=== PATIENT | female | born 1960 | race Caucasian/White ===

== ENCOUNTER 2017-07-02 16:10 | Inpatient (IN) | payer MEDICARE, MEDICAID ==
[~2017-07-02] VITALS: Ht 162.6 cm; Wt 68.0 kg
[~2017-07-02 16:10] MED LIST: ASCO125T PO; CHLO500T3 PO; CHOL100046 PO; LEVO500T2 PO; MILK200C4 PO; MORP30TA PO; MORP60TA32 PO; NICO-631 TD
[2017-07-02] MEDS ORDERED: morphine 2 MG/ML inj. syringe IV ONE ×2 (17:05→20:20)
[2017-07-02 17:16] LABS: BASOPHILS % (AUTO) 0.1 % (0-1); EOSINOPHILS % (AUTO) 0 % (0-6); HEMATOCRIT 37.4 % (35.0-45.0); LYMPHOCYTES # (AUTO) 1.5 X10'3 (1.1-4.8); LYMPHOCYTES % (AUTO) 11.5 % (21-51); MEAN CORPUSCULAR HEMOGLOBIN 22.8 PG (27.0-31.0); MEAN CORPUSCULAR HGB CONC 32.1 % (33.0-36.5); MEAN PLATELET VOLUME 7.3 FL (7.4-10.4); MONOCYTES # (AUTO) 0.4 X10'3 (0-0.9); MONOCYTES % (AUTO) 3.1 % (2-12); NEUTROPHILS # (AUTO) 10.9 X10'3 (1.8-7.7); NEUTROPHILS % (AUTO) 85.3 % (42-75); PLATELET COUNT 414 X10'3 (140-440); RED BLOOD COUNT 5.27 X10'6 (4.20-5.60); RED CELL DISTRIBUTION WIDTH 19.6 % (11.5-14.5); WHITE BLOOD COUNT 12.8 X10'3 (4.5-11.0)
[2017-07-02] MEDS ORDERED: ondansetron/PF 4mg/2ml inj IV ONE (17:20)
[2017-07-02 17:24] LABS: PROTHROMBIN TIME 10.3 SECONDS (9.0-12.0)
[2017-07-02 17:37] LABS: ALANINE AMINOTRANSFERASE 66 U/L (12-78); ALBUMIN 3.6 G/DL (3.4-5.0); ALBUMIN/GLOBULIN RATIO 0.9 (1.1-1.5); ALKALINE PHOSPHATASE 68 IU/L (46-116); AMYLASE 43 U/L (25-115); ANION GAP 9 (8-16); ASPARTATE AMINO TRANSFERASE 39 U/L (10-37); BILIRUBIN,TOTAL 0.4 MG/DL (0.1-1.0); BLOOD UREA NITROGEN 14 MG/DL (7-18); BUN/CREATININE RATIO 25.9 (6.6-38.0); CALCIUM 8.9 MG/DL (8.5-10.1); CHLORIDE 105 MMOL/L (99-107); CREATININE 0.54 MG/DL (0.40-0.90); GLUCOSE 116 MG/DL (70-104); LIPASE 212 U/L (73-393); POTASSIUM 3.6 MMOL/L (3.5-5.1); SODIUM 141 MMOL/L (135-145); TOTAL CARBON DIOXIDE 26.9 MMOL/L (24-32); TOTAL PROTEIN 7.4 G/DL (6.4-8.2); eGFR > 90 ML/MIN
[2017-07-02 18:57] LABS: CLARITY,URINE CLOUDY (Clear); COLOR,URINE YELLOW (Yellow); GLUCOSE, URINE NEGATIVE (Neg); KETONES,URINE 15 mg/dl (Neg); LEUKOCYTE ESTERASE ,URINE NEGATIVE (Neg); NITRITES, URINE POSITIVE (Neg); OCCULT BLOOD,URINE SMALL (Neg); PROTEIN,URINE NEGATIVE (Neg); UROBILINOGEN,URINE 0.2 E.U/dL (0.2-1.0)
[2017-07-02 19:17] LABS: UA COLLECTION TYPE CLN CATCH MIDSTREAM
[2017-07-02 19:22] LABS: BACTERIA,URINE 4+ /HPF (Neg); MUCUS STRANDS FEW /LPF (Neg); RBC,URINE 0-2 /HPF (0-2); SQUAMOUS EPITHELIAL CELL,UR FEW /LPF (FEW)
[2017-07-02] MEDS ORDERED: ketorolac trometh. 30mg/ml inj. IV ONE (20:05)
[2017-07-02] MEDS ORDERED: morphine 4 MG/ML inj SYRINge IV ONE (20:05)
[2017-07-02] MEDS ORDERED: MORP30TA PO (20:33)
[2017-07-02] MEDS ORDERED: MORP20CA20 PO (20:33)
[2017-07-02 20:54] LABS: PLATELET ESTIMATE NORMAL; POIKILOCYTOSIS FEW; TOTAL CELLS COUNTED 100
[2017-07-02 20:55] LABS: ELLIPTOCYTES 2+; HYPOCHROMASIA 2+; MICROCYTOSIS 1+
[2017-07-02 20:56] LABS: TEAR DROP CELLS FEW
[2017-07-02 20:57] LABS: ANISOCYTOSIS 2+; POLYCHROMASIA FEW; TOXIC GRANULATION 1+
[2017-07-02] MEDS ORDERED: acetaminophen 325mg tablet PO PRN (21:40)
[2017-07-02] MEDS: normal saline 1000ml 1,000 ML IV SCH (22:13)
[2017-07-03] MEDS: morphine 2 MG/ML inj. syringe IV PRN ×3 (00:27→12:25)
[2017-07-03] MEDS: ondansetron/PF 4mg/2ml inj IV PRN (05:02)
[2017-07-03 06:35] LABS: BASOPHILS % (AUTO) 0.2 % (0-1); EOSINOPHILS # (AUTO) 0.3 X10'3 (0-0.9); EOSINOPHILS % (AUTO) 1.4 % (0-6); HEMATOCRIT 36.9 % (35.0-45.0); HEMOGLOBIN 12.3 g/dl (12.0-16.0); LYMPHOCYTES # (AUTO) 1.6 X10'3 (1.1-4.8); MEAN CORPUSCULAR HGB CONC 33.3 % (33.0-36.5); MEAN CORPUSCULAR VOLUME 69.1 FL (78-98); MEAN PLATELET VOLUME 7.4 FL (7.4-10.4); MONOCYTES # (AUTO) 1.3 X10'3 (0-0.9); MONOCYTES % (AUTO) 5.5 % (2-12); NEUTROPHILS # (AUTO) 19.6 X10'3 (1.8-7.7); NEUTROPHILS % (AUTO) 85.9 % (42-75); PLATELET COUNT 435 X10'3 (140-440); RED BLOOD COUNT 5.33 X10'6 (4.20-5.60); RED CELL DISTRIBUTION WIDTH 19.1 % (11.5-14.5); WHITE BLOOD COUNT 22.8 X10'3 (4.5-11.0)
[2017-07-03 06:47] LABS: ALBUMIN 3.4 G/DL (3.4-5.0); ANION GAP 12 (8-16); BLOOD UREA NITROGEN 11 MG/DL (7-18); BUN/CREATININE RATIO 19.3 (6.6-38.0); CALCIUM 8.7 MG/DL (8.5-10.1); CHLORIDE 100 MMOL/L (99-107); CREATININE 0.57 MG/DL (0.40-0.90); GLUCOSE 126 MG/DL (70-104); POTASSIUM 3.4 MMOL/L (3.5-5.1); SODIUM 136 MMOL/L (135-145); TOTAL CARBON DIOXIDE 24.4 MMOL/L (24-32); eGFR > 90 ML/MIN
[2017-07-03] MEDS: normal saline 1000ml 1,000 ML IV SCH ×2 (07:36→13:58)
[2017-07-03] MEDS ORDERED: CefTRIAXone/D5W-Rocephin 1gm 50 ML IV SCH (08:00)
[2017-07-03] MEDS: lisinopril 10 MG tablet PO SCH (08:09)
[2017-07-03 08:33] LABS: ANISOCYTOSIS 2+; MICROCYTOSIS 2+; PLATELET ESTIMATE NORMAL
[2017-07-03 08:38] LABS: ELLIPTOCYTES 1+; SCHISTOCYTES FEW
[2017-07-03 08:39] LABS: POLYCHROMASIA FEW
[2017-07-03 08:41] LABS: STOMATOCYTES FEW
[2017-07-03] MEDS ORDERED: TIZA4CAP PO ×2 (09:28→09:37)
[2017-07-03] MEDS ORDERED: DULO60CA64 (09:30)
[2017-07-03] MEDS ORDERED: LACT1CAP67 (09:30)
[2017-07-03] MEDS ORDERED: FLU VACC QS2017-18 36MOS UP/PF 60 MCG/0.5 ML SYRINGE IMVAC ONE (09:30)
[2017-07-03] MEDS ORDERED: ALBU18HF2 (09:30)
[2017-07-03] MEDS ORDERED: CHOL500044 (09:31)
[2017-07-03] MEDS ORDERED: VIT1TABL83 PO (09:32)
[2017-07-03] MEDS ORDERED: ACET-2319 PO (09:33)
[2017-07-03 14:00] VITALS: BP 182/78
[2017-07-03 14:15] VITALS: BP 177/80
[2017-07-03] MEDS: hydrALAZINE 20mg/ml inj. IV PRN (14:32)
[2017-07-03 15:00] VITALS: BP 142/75
[2017-07-03 16:00] VITALS: BP 138/74
[2017-07-03] MEDS: piperacillin/tazo 3.375gm/50ml 50 ML IV SCH ×2 (16:51→20:41)
[2017-07-03] MEDS: MORPHINE 2MG in 2ml NS syringe IV PRN ×2 (16:56→21:47)
[2017-07-03 20:00] VITALS: BP 156/82
[2017-07-03 23:15] VITALS: BP 155/78
[2017-07-04] VITALS (19 sets, daily range): BP systolic 126–172; BP diastolic 69–91
[2017-07-04] MEDS: piperacillin/tazo 3.375gm/50ml 50 ML IV SCH ×4 (02:03→22:26)
[2017-07-04] MEDS: MORPHINE 2MG in 2ml NS syringe IV PRN ×6 (02:03→22:42)
[2017-07-04] MEDS: ondansetron/PF 4mg/2ml inj IV PRN ×2 (02:13→12:18)
[2017-07-04] MEDS: normal saline 1000ml 1,000 ML IV SCH ×2 (03:36→16:36)
[2017-07-04 05:20] LABS: BASOPHILS % (AUTO) 0 % (0-1); EOSINOPHILS # (AUTO) 0.3 X10'3 (0-0.9); EOSINOPHILS % (AUTO) 1.5 % (0-6); HEMATOCRIT 35.2 % (35.0-45.0); HEMOGLOBIN 11.6 g/dl (12.0-16.0); LYMPHOCYTES # (AUTO) 1.2 X10'3 (1.1-4.8); LYMPHOCYTES % (AUTO) 5.7 % (21-51); MEAN CORPUSCULAR HEMOGLOBIN 23.1 PG (27.0-31.0); MEAN CORPUSCULAR HGB CONC 32.8 % (33.0-36.5); MEAN CORPUSCULAR VOLUME 70.3 FL (78-98); MEAN PLATELET VOLUME 7.9 FL (7.4-10.4); MONOCYTES # (AUTO) 1.7 X10'3 (0-0.9); MONOCYTES % (AUTO) 8.5 % (2-12); NEUTROPHILS # (AUTO) 17.1 X10'3 (1.8-7.7); NEUTROPHILS % (AUTO) 84.3 % (42-75); PLATELET COUNT 336 X10'3 (140-440); RED CELL DISTRIBUTION WIDTH 19.4 % (11.5-14.5); WHITE BLOOD COUNT 20.3 X10'3 (4.5-11.0)
[2017-07-04 05:46] LABS: INR 1.1 INR; PARTIAL THROMBOPLASTIN TIME 27 SECONDS (22-32); PROTHROMBIN TIME 11.6 SECONDS (9.0-12.0)
[2017-07-04 05:57] LABS: ALBUMIN 2.9 G/DL (3.4-5.0); ANION GAP 10 (8-16); BLOOD UREA NITROGEN 9 MG/DL (7-18); BUN/CREATININE RATIO 17.6 (6.6-38.0); CALCIUM 8.7 MG/DL (8.5-10.1); CHLORIDE 102 MMOL/L (99-107); CREATININE 0.51 MG/DL (0.40-0.90); GLUCOSE 107 MG/DL (70-104); SODIUM 139 MMOL/L (135-145); TOTAL CARBON DIOXIDE 26.7 MMOL/L (24-32); eGFR > 90 ML/MIN
[2017-07-04 06:33] LABS: POTASSIUM 2.9 MMOL/L (3.5-5.1)
[2017-07-04] MEDS ORDERED: potassium Cl 40MEQ/NS 500ml 500 ML IV PRN (06:35)
[2017-07-04] MEDS ORDERED: potassium Cl 20 mEq SR tablet PO PRN (06:35)
[2017-07-04] MEDS: lisinopril 10 MG tablet PO SCH (07:09)
[2017-07-04] MEDS: potassium Cl 40MEQ/NS 500ml 500 ML IV PRN ×3 (08:32→12:33)
[2017-07-04] MEDS ORDERED: ceFAZolin 1000mg inj ONE ×3 (14:00→14:37)
[2017-07-04] MEDS ORDERED: BUPIVAcaine/PF 2.5 mg/ml (0.25%) 30ml vial ONE (14:00)
[2017-07-04] MEDS ORDERED: ringers solution, lacted 1,000 ML IV SCH (14:11)
[2017-07-04] MEDS ORDERED: ondansetron/PF 4mg/2ml inj IV PRN (14:15)
[2017-07-04] MEDS ORDERED: hydrALAZINE 20mg/ml inj. IV PRN (14:15)
[2017-07-04] MEDS ORDERED: fentaNYL/PF 50MCG/1 ML 2ML syringe IV PRN ×2 (14:15)
[2017-07-04] MEDS ORDERED: MORPHINE 2MG in 2ml NS syringe IV PRN (14:15)
[2017-07-04] MEDS ORDERED: labetalol 5mg/ml 20ml inj. IV PRN (14:15)
[2017-07-04] MEDS ORDERED: midazolam 2 mg/2 ml injection ONE (14:19)
[2017-07-04] MEDS ORDERED: fentaNYL/PF 50MCG/1 ML 2ML syringe ONE (14:19)
[2017-07-04] MEDS ORDERED: sevoflurane 250ml liquid IH ONE (14:20)
[2017-07-04] MEDS ORDERED: propofol inj 20 ML IV ONE (14:21)
[2017-07-04] MEDS ORDERED: rocuronium 10mg/ml inj IV ONE ×3 (14:21→14:49)
[2017-07-04] MEDS ORDERED: glycopyrrolate 0.2mg/ml inj ONE (14:21)
[2017-07-04] MEDS ORDERED: dexamethasone sod phosphate 4mg/ml inj. ONE (14:21)
[2017-07-04] MEDS ORDERED: LIDOcaine 2% (20mg/ml) 5ml vial ONE (14:21)
[2017-07-04] MEDS ORDERED: ondansetron/PF 4mg/2ml inj ONE (14:21)
[2017-07-04] MEDS ORDERED: labetalol 5mg/ml 20ml inj. IV ONE (14:47)
[2017-07-04] MEDS ORDERED: ketorolac trometh. 30mg/ml inj. ONE (15:04)
[2017-07-04] MEDS ORDERED: morphine 10mg/ml inj. ONE (15:16)
[2017-07-04] MEDS: hydrALAZINE 20mg/ml inj. IV PRN (17:35)
[2017-07-05] VITALS: BP 133/67
[2017-07-05] MEDS: MORPHINE 2MG in 2ml NS syringe IV PRN ×4 (02:43→15:59)
[2017-07-05] MEDS: piperacillin/tazo 3.375gm/50ml 50 ML IV SCH ×4 (02:51→20:49)
[2017-07-05] MEDS: normal saline 1000ml 1,000 ML IV SCH ×3 (02:55→19:36)
[2017-07-05 04:00] VITALS: BP 135/67
[2017-07-05 05:37] LABS: BASOPHILS % (AUTO) 0 % (0-1); EOSINOPHILS # (AUTO) 0.3 X10'3 (0-0.9); EOSINOPHILS % (AUTO) 1.4 % (0-6); HEMATOCRIT 33.8 % (35.0-45.0); HEMOGLOBIN 10.9 g/dl (12.0-16.0); LYMPHOCYTES # (AUTO) 1.7 X10'3 (1.1-4.8); LYMPHOCYTES % (AUTO) 7.9 % (21-51); MEAN CORPUSCULAR HEMOGLOBIN 23.2 PG (27.0-31.0); MEAN CORPUSCULAR HGB CONC 32.3 % (33.0-36.5); MEAN CORPUSCULAR VOLUME 71.9 FL (78-98); MEAN PLATELET VOLUME 8.4 FL (7.4-10.4); MONOCYTES # (AUTO) 1.1 X10'3 (0-0.9); MONOCYTES % (AUTO) 4.9 % (2-12); NEUTROPHILS # (AUTO) 18.7 X10'3 (1.8-7.7); NEUTROPHILS % (AUTO) 85.8 % (42-75); PLATELET COUNT 339 X10'3 (140-440); RED BLOOD COUNT 4.71 X10'6 (4.20-5.60); RED CELL DISTRIBUTION WIDTH 20.1 % (11.5-14.5); WHITE BLOOD COUNT 21.8 X10'3 (4.5-11.0)
[2017-07-05 05:57] LABS: ALBUMIN 2.6 G/DL (3.4-5.0); ANION GAP 12 (8-16); BLOOD UREA NITROGEN 14 MG/DL (7-18); BUN/CREATININE RATIO 16.9 (6.6-38.0); CALCIUM 8.7 MG/DL (8.5-10.1); CHLORIDE 101 MMOL/L (99-107); CREATININE 0.83 MG/DL (0.40-0.90); GLUCOSE 172 MG/DL (70-104); MAGNESIUM 1.6 MG/DL (1.5-2.4); POTASSIUM 3.7 MMOL/L (3.5-5.1); SODIUM 137 MMOL/L (135-145); TOTAL CARBON DIOXIDE 23.7 MMOL/L (24-32); eGFR 72 ML/MIN
[2017-07-05] MEDS: lisinopril 10 MG tablet PO SCH (07:40)
[2017-07-05 07:54] VITALS: BP 146/71
[2017-07-05 11:43] LABS: BILIRUBIN,TOTAL 0.7 MG/DL (0.1-1.0)
[2017-07-05 14:00] VITALS: BP 138/69
[2017-07-05] MEDS ORDERED: morphine 4 MG/ML inj SYRINge IV PRN (19:50)
[2017-07-05 20:00] VITALS: BP 144/79
[2017-07-05] MEDS: morphine 4 MG/ML inj SYRINge IV PRN (20:48)
[2017-07-05] MEDS: temazepam 15mg capsule PO PRN (22:50)
[2017-07-06] VITALS: BP 133/72
[2017-07-06] MEDS: temazepam 15mg capsule PO PRN (01:14)
[2017-07-06] MEDS: morphine 4 MG/ML inj SYRINge IV PRN ×3 (01:15→13:01)
[2017-07-06] MEDS: piperacillin/tazo 3.375gm/50ml 50 ML IV SCH ×3 (02:22→13:27)
[2017-07-06] MEDS: normal saline 1000ml 1,000 ML IV SCH ×2 (05:36→13:32)
[2017-07-06 06:13] LABS: BASOPHILS % (AUTO) 0.3 % (0-1); EOSINOPHILS # (AUTO) 0.2 X10'3 (0-0.9); EOSINOPHILS % (AUTO) 1.8 % (0-6); HEMATOCRIT 28.7 % (35.0-45.0); HEMOGLOBIN 9.4 g/dl (12.0-16.0); LYMPHOCYTES # (AUTO) 1.6 X10'3 (1.1-4.8); LYMPHOCYTES % (AUTO) 15.1 % (21-51); MEAN CORPUSCULAR HEMOGLOBIN 23.3 PG (27.0-31.0); MEAN CORPUSCULAR HGB CONC 32.7 % (33.0-36.5); MEAN CORPUSCULAR VOLUME 71.3 FL (78-98); MEAN PLATELET VOLUME 8.2 FL (7.4-10.4); MONOCYTES # (AUTO) 0.9 X10'3 (0-0.9); MONOCYTES % (AUTO) 8.5 % (2-12); NEUTROPHILS # (AUTO) 7.9 X10'3 (1.8-7.7); NEUTROPHILS % (AUTO) 74.3 % (42-75); PLATELET COUNT 244 X10'3 (140-440); RED BLOOD COUNT 4.02 X10'6 (4.20-5.60); RED CELL DISTRIBUTION WIDTH 20.3 % (11.5-14.5); WHITE BLOOD COUNT 10.6 X10'3 (4.5-11.0)
[2017-07-06 06:30] LABS: ALBUMIN 2.3 G/DL (3.4-5.0); ANION GAP 7 (8-16); BLOOD UREA NITROGEN 9 MG/DL (7-18); BUN/CREATININE RATIO 16.1 (6.6-38.0); CALCIUM 8.1 MG/DL (8.5-10.1); CHLORIDE 104 MMOL/L (99-107); CREATININE 0.56 MG/DL (0.40-0.90); GLUCOSE 97 MG/DL (70-104); MAGNESIUM 1.8 MG/DL (1.5-2.4); POTASSIUM 3.1 MMOL/L (3.5-5.1); SODIUM 139 MMOL/L (135-145); TOTAL CARBON DIOXIDE 27.7 MMOL/L (24-32); eGFR > 90 ML/MIN
[2017-07-06] MEDS: potassium Cl 20 mEq SR tablet PO PRN ×2 (08:37→12:55)
[2017-07-06] MEDS: lisinopril 10 MG tablet PO SCH (08:37)
[2017-07-06 08:41] VITALS: BP 143/77
[2017-07-06 12:12] VITALS: BP 148/75
== END 2017-07-06 15:51 | disposition home or self-care (01) | DRG 854 ==
LOC: ER 16:10 → ED HOLD 21:36 → OBSVTOIN 21:36 → EDBEDREQ 07-03 13:29 → SUR 3N 07-03 14:25
PROVIDERS: ADMIT Family Medicine; ATTEND Internal Medicine
PROC: 0DNU4ZZ Release Omentum, Percutaneous Endoscopic Approach (ICD-10-PCS; 2017-07-04)
PROC: 0FT44ZZ Resection of Gallbladder, Percutaneous Endoscopic Approach (ICD-10-PCS; principal; 2017-07-04 14:20)
DX: A41.9 Sepsis, unspecified organism (principal); K80.00 Calculus of gallbladder with acute cholecystitis without obstruction; K82.1 Hydrops of gallbladder; N39.0 Urinary tract infection, site not specified; G89.29 Other chronic pain; I10 Essential (primary) hypertension; K66.0 Peritoneal adhesions (postprocedural) (postinfection); M81.0 Age-related osteoporosis without current pathological fracture; R19.7 Diarrhea, unspecified; M54.9 Dorsalgia, unspecified; F17.200 Nicotine dependence, unspecified, uncomplicated; Z98.84 Bariatric surgery status; Z79.899 Other long term (current) drug therapy; Z23 Encounter for immunization
CPT/HCPCS: 36415; 71045; 76700; 80048; 80053; 81001; 82150; 82247; 83605; 83690; 83735; 85025; 85610; 85730; 87040; 87070; 87077; 87088; 87186; 88304; 93005; 96374; 96375; 96376; 99285; A7000; J0360; J0690; J0696; J1100; J1885; J2001; J2250; J2270; J2274; J2405; J2543; J2704; J3010; J3480; J3490; J7030; J7120; Q2037

== ENCOUNTER 2018-08-09 13:20 | Emergency (ER) | payer MEDICARE, MEDICAID ==
[~2018-08-09] VITALS: Ht 167.6 cm; Wt 71.0 kg
[~2018-08-09 13:20] MED LIST changes: +ACET-2319 PO; +ALBU18HF2; -ASCO125T PO; -CHLO500T3 PO; -CHOL100046 PO; +CHOL500044; +DULO60CA64; +LACT1CAP67; -LEVO500T2 PO; -MILK200C4 PO; +MORP20CA20 PO; -MORP60TA32 PO; -NICO-631 TD; +TIZA4CAP PO; +VIT1TABL83 PO
[2018-08-09 13:47] VITALS: BP 121/72
[2018-08-09] MEDS ORDERED: CEPH-572 PO (14:39)
== END 2018-08-09 15:02 | disposition home or self-care (01) ==
LOC: ER 13:20
DX: S81.802A Unspecified open wound, left lower leg, initial encounter (principal); S81.801A Unspecified open wound, right lower leg, initial encounter; G89.29 Other chronic pain; Z90.49 Acquired absence of other specified parts of digestive tract; Z98.890 Other specified postprocedural states; Z79.899 Other long term (current) drug therapy; X58.XXXA Exposure to other specified factors, initial encounter; Y93.89 Activity, other specified; Y92.89 Other specified places as the place of occurrence of the external cause; Y99.8 Other external cause status
CPT/HCPCS: 99283

== ENCOUNTER 2019-02-16 20:07 | Emergency (ER) | payer MEDICARE, MEDICAID ==
[~2019-02-16] VITALS: Ht 167.6 cm; Wt 55.5 kg
[~2019-02-16 20:07] MED LIST changes: -DULO60CA64; +DULO60CA65
[2019-02-16] MEDS ORDERED: HYDROcodone/acetaminophen 5mg/325mg tablet PO ONE (20:45)
[2019-02-16] MEDS ORDERED: normal saline 1000ML IV soln IVB ONE (20:45)
--- NOTE | 2019-02-16 20:52 | NUR ---
LAB AT BEDSIDE FOR DRAW
[2019-02-16 21:13] LABS: BASOPHILS # (AUTO) 0.1 X10'3 (0-0.2); BASOPHILS % (AUTO) 0.6 % (0-1); EOSINOPHILS # (AUTO) 0.1 X10'3 (0-0.9); EOSINOPHILS % (AUTO) 0.8 % (0-6); HEMOGLOBIN 7.1 g/dl (12.0-16.0); LYMPHOCYTES # (AUTO) 2.5 X10'3 (1.1-4.8); LYMPHOCYTES % (AUTO) 21.5 % (21-51); MEAN CORPUSCULAR HEMOGLOBIN 19.5 PG (27.0-31.0); MEAN CORPUSCULAR HGB CONC 30.9 g/dL (33.0-36.5); MEAN PLATELET VOLUME 6.9 FL (7.4-10.4); MONOCYTES # (AUTO) 0.8 X10'3 (0-0.9); MONOCYTES % (AUTO) 6.9 % (2-12); NEUTROPHILS # (AUTO) 8.2 X10'3 (1.8-7.7); NEUTROPHILS % (AUTO) 70.2 % (42-75); PLATELET COUNT 481 X10'3 (140-440); RED BLOOD COUNT 3.65 X10'6 (4.20-5.60); RED CELL DISTRIBUTION WIDTH 23.1 % (11.5-14.5); WHITE BLOOD COUNT 11.7 X10'3 (4.5-11.0)
[2019-02-16 21:24] LABS: ALANINE AMINOTRANSFERASE 19 U/L (12-78); ALBUMIN 2.3 G/DL (3.4-5.0); ALBUMIN/GLOBULIN RATIO 0.5 (1.1-1.5); ALKALINE PHOSPHATASE 97 IU/L (46-116); ANION GAP 5 (8-16); ASPARTATE AMINO TRANSFERASE 20 U/L (10-37); BILIRUBIN,TOTAL 0.2 MG/DL (0.1-1.0); BLOOD UREA NITROGEN 14 MG/DL (7-18); BUN/CREATININE RATIO 20.6 (6.6-38.0); CALCIUM 8.3 MG/DL (8.5-10.1); CHLORIDE 104 MMOL/L (99-107); CREATININE 0.68 MG/DL (0.40-0.90); GLUCOSE 82 MG/DL (70-104); POTASSIUM 4.4 MMOL/L (3.5-5.1); SODIUM 140 MMOL/L (135-145); TOTAL CARBON DIOXIDE 31.1 MMOL/L (24-32); TOTAL PROTEIN 6.7 G/DL (6.4-8.2); eGFR 90 ML/MIN
[2019-02-16] MEDS ORDERED: morphine 4 MG/ML inj SYRINge IM ONE (22:10)
[2019-02-16] MEDS ORDERED: morphine 4 MG/ML inj SYRINge IV ONE (22:25)
[2019-02-16 22:45] VITALS: BP 110/60
[2019-02-16 23:03] LABS: ANISOCYTOSIS 3+; MICROCYTOSIS 2+; PLATELET ESTIMATE INCREASED; POLYCHROMASIA FEW
[2019-02-16 23:04] LABS: ELLIPTOCYTES 1+; HYPOCHROMASIA 1+; TEAR DROP CELLS FEW
== END 2019-02-16 22:48 | disposition home or self-care (01) ==
LOC: ER 20:08
DX: L03.116 Cellulitis of left lower limb (principal); G89.29 Other chronic pain; R11.2 Nausea with vomiting, unspecified; Z90.49 Acquired absence of other specified parts of digestive tract; Z98.890 Other specified postprocedural states; Z98.84 Bariatric surgery status; Z79.899 Other long term (current) drug therapy
CPT/HCPCS: 36415; 80053; 83605; 84145; 85025; 87040; 96361; 96374; 99284; J2270; J7030

== ENCOUNTER 2021-05-12 15:54 | Emergency (ER) | payer BC, MEDICAID ==
[~2021-05-12] VITALS: Ht 170.2 cm; Wt 86.3 kg
[~2021-05-12 15:54] MED LIST changes: -LACT1CAP67; +LACT1CAP77
[2021-05-12 16:09] VITALS: BP 128/74
[2021-05-12 17:06] LABS: BASOPHILS # (AUTO) 0.1 X10'3 (0-0.2); BASOPHILS % (AUTO) 0.5 % (0-1); EOSINOPHILS # (AUTO) 0.1 X10'3 (0-0.9); EOSINOPHILS % (AUTO) 0.6 % (0-6); HEMATOCRIT 39.4 % (35.0-45.0); HEMOGLOBIN 12.9 g/dl (12.0-16.0); LYMPHOCYTES # (AUTO) 1.5 X10'3 (1.1-4.8); LYMPHOCYTES % (AUTO) 13.3 % (21-51); MEAN CORPUSCULAR HEMOGLOBIN 26.5 PG (27.0-31.0); MEAN CORPUSCULAR HGB CONC 32.7 g/dL (33.0-36.5); MEAN CORPUSCULAR VOLUME 81.1 FL (78-98); MEAN PLATELET VOLUME 7.8 FL (7.4-10.4); MONOCYTES # (AUTO) 0.9 X10'3 (0-0.9); MONOCYTES % (AUTO) 8.2 % (2-12); NEUTROPHILS # (AUTO) 8.8 X10'3 (1.8-7.7); NEUTROPHILS % (AUTO) 77.4 % (42-75); PLATELET COUNT 271 X10'3 (140-440); RED BLOOD COUNT 4.86 X10'6 (4.20-5.60); RED CELL DISTRIBUTION WIDTH 14.9 % (11.5-14.5); WHITE BLOOD COUNT 11.4 X10'3 (4.5-11.0)
[2021-05-12 17:34] LABS: ALANINE AMINOTRANSFERASE 21 U/L (12-78); ALBUMIN 3.5 G/DL (3.4-5.0); ALKALINE PHOSPHATASE 88 IU/L (46-116); ANION GAP 9 (8-16); ASPARTATE AMINO TRANSFERASE 21 U/L (10-37); BILIRUBIN,TOTAL 0.4 MG/DL (0.1-1.0); BLOOD UREA NITROGEN 12 MG/DL (7-18); BUN/CREATININE RATIO 18.2 (6.6-38.0); CHLORIDE 99 MMOL/L (99-107); CREATININE 0.66 MG/DL (0.40-0.90); GLUCOSE 88 MG/DL (70-104); POTASSIUM 4.2 MMOL/L (3.5-5.1); SODIUM 138 MMOL/L (135-145); TOTAL CARBON DIOXIDE 29.8 MMOL/L (24-32); TOTAL PROTEIN 6.9 G/DL (6.4-8.2); eGFR > 90 ML/MIN
== END 2021-05-12 21:43 | disposition left against medical advice (07) ==
LOC: ER 15:54
DX: R06.02 Shortness of breath (principal); R07.89 Other chest pain; R05.9 Cough, unspecified; I10 Essential (primary) hypertension; Z86.16 Personal history of COVID-19; G89.29 Other chronic pain; Z86.2 Personal history of diseases of the blood and blood-forming organs and certain disorders involving the immune mechanism; Z87.81 Personal history of (healed) traumatic fracture; Z90.49 Acquired absence of other specified parts of digestive tract; Z98.84 Bariatric surgery status; Z98.891 History of uterine scar from previous surgery; Z79.899 Other long term (current) drug therapy
CPT/HCPCS: 36415; 71045; 80053; 84484; 85025; 85610; 93005; 99285

== ENCOUNTER 2021-08-24 17:54 | Inpatient (IN) | payer BC, MEDICAID ==
[~2021-08-24] VITALS: Ht 170.2 cm; Wt 72.0 kg
[2021-08-24] MEDS ORDERED: normal saline 1000ML IV soln IV ONE (18:55)
[2021-08-24] MEDS ORDERED: acetaminophen 325mg tablet PO STA (18:55)
[2021-08-24] MEDS ORDERED: ondansetron/PF 4mg/2ml inj IV ONE (18:55)
[2021-08-24 19:26] LABS: BASOPHILS % (AUTO) 0.2 % (0-1); EOSINOPHILS % (AUTO) 0 % (0-6); HEMATOCRIT 42.3 % (35.0-45.0); HEMOGLOBIN 13.4 g/dl (12.0-16.0); LYMPHOCYTES # (AUTO) 0.6 X10'3 (1.1-4.8); LYMPHOCYTES % (AUTO) 2.5 % (21-51); MEAN CORPUSCULAR HEMOGLOBIN 25.3 PG (27.0-31.0); MEAN CORPUSCULAR HGB CONC 31.7 g/dL (33.0-36.5); MEAN CORPUSCULAR VOLUME 79.8 FL (78-98); MEAN PLATELET VOLUME 7.4 FL (7.4-10.4); MONOCYTES # (AUTO) 0.5 X10'3 (0-0.9); MONOCYTES % (AUTO) 1.9 % (2-12); NEUTROPHILS # (AUTO) 23.3 X10'3 (1.8-7.7); NEUTROPHILS % (AUTO) 95.4 % (42-75); PLATELET COUNT 252 X10'3 (140-440); RED CELL DISTRIBUTION WIDTH 15.6 % (11.5-14.5); WHITE BLOOD COUNT 24.4 X10'3 (4.5-11.0)
[2021-08-24] MEDS ORDERED: CefTRIAXone 2gm/NS 100ml IVPB 100 ML IV ONE (19:35)
[2021-08-24 19:36] LABS: ALANINE AMINOTRANSFERASE 49 U/L (12-78); ALBUMIN 3.7 G/DL (3.4-5.0); ALBUMIN/GLOBULIN RATIO 0.8 (1.1-1.5); ALKALINE PHOSPHATASE 109 IU/L (46-116); ANION GAP 11 (8-16); ASPARTATE AMINO TRANSFERASE 52 U/L (10-37); BILIRUBIN,TOTAL 0.7 MG/DL (0.1-1.0); BLOOD UREA NITROGEN 19 MG/DL (7-18); BUN/CREATININE RATIO 19.8 (6.6-38.0); CALCIUM 9.2 MG/DL (8.5-10.1); CHLORIDE 96 MMOL/L (99-107); CREATININE 0.96 MG/DL (0.40-0.90); ETHANOL < 0.010 GM/DL (0.0-0.010); GLUCOSE 126 MG/DL (70-104); MAGNESIUM 1.9 MG/DL (1.5-2.4); SODIUM 135 MMOL/L (135-145); TOTAL CARBON DIOXIDE 27.9 MMOL/L (24-32); TOTAL PROTEIN 8.3 G/DL (6.4-8.2); eGFR 60 ML/MIN
[2021-08-24 19:39] LABS: POTASSIUM 3.8 MMOL/L (3.5-5.1)
[2021-08-24] MEDS ORDERED: methylPREDNISolone sod succ 125mg/2ml vial IV ONE (19:55)
[2021-08-24] MEDS ORDERED: ipratropium/albuterol 3ml nebule NEB ONE (19:55)
[2021-08-24 20:25] LABS: CLARITY,URINE SLIGHTLY CLOUDY (Clear); COLOR,URINE YELLOW (Yellow); GLUCOSE, URINE NEGATIVE (Neg); KETONES,URINE TRACE mg/dl (Neg); LEUKOCYTE ESTERASE ,URINE TRACE (Neg); NITRITES, URINE POSITIVE (Neg); OCCULT BLOOD,URINE SMALL (Neg); PROTEIN,URINE 100 mg/dl (Neg); UROBILINOGEN,URINE 0.2 E.U/dL (0.2-1.0)
[2021-08-24 20:28] LABS: UA COLLECTION TYPE STRAIGHT CATH
[2021-08-24 20:30] LABS: MICROCYTOSIS 1+; PLATELET ESTIMATE NORMAL; TOTAL CELLS COUNTED 100
[2021-08-24 20:31] LABS: BACTERIA,URINE 4+ /HPF (Neg); MUCUS STRANDS FEW /LPF (Neg); RBC,URINE 0-2 /HPF (0-2); SQUAMOUS EPITHELIAL CELL,UR FEW /LPF (FEW); WBC,URINE 20-30 /HPF (0-4)
[2021-08-24 20:32] LABS: TOXIC VACUOLATION 1+
[2021-08-24 20:32] LABS: WBC CLUMPS,URINE FEW /HPF (NEGATIVE)
[2021-08-24 20:34] LABS: URINE AMPHETAMINE SCREEN NEGATIVE (Neg); URINE BARBITUATE SCREEN NEGATIVE (Neg); URINE BENZODIAZEPINES SCREEN NEGATIVE (Neg); URINE CANNABINOID SCREEN NEGATIVE (Neg); URINE COCAINE SCREEN NEGATIVE (Neg); URINE METHADONE SCREEN NEGATIVE (Neg); URINE OPIATE SCREEN NEGATIVE (Neg); URINE PHENCYCLIDINE SCREEN NEGATIVE (Neg)
[2021-08-24 20:34] LABS: STOMATOCYTES 1+
[2021-08-24] MEDS ORDERED: TIOT4MIS2 PO (20:46)
[2021-08-24] MEDS ORDERED: BUPR1FIL20 SL (20:46)
[2021-08-24] MEDS ORDERED: METO-395 PO (20:46)
[2021-08-24] MEDS ORDERED: HYDR-3686 PO (20:46)
[2021-08-24] MEDS ORDERED: CHLO500T3 PO (20:46)
[2021-08-24] MEDS ORDERED: BUSP10TA4 PO (20:46)
--- NOTE | 2021-08-24 20:46 | NUR ---
Med rec done with at the bedside as patient unable to answer questions at the moment.
--- NOTE | 2021-08-24 21:27 | NUR ---
DANELLE Vences made aware of patients blood pressure trending down. No new orders at this time.
[2021-08-24] MEDS ORDERED: normal saline 1000ML IV soln IVB ONE ×2 (21:45→23:35)
--- NOTE | 2021-08-24 22:00 | NUR ---
Prior to placing de souza catheter it was found that patient had an episode of urine incontinence. Patient cleaned up, all linens changed, michaelle care complete.
[2021-08-24 22:16] LABS: ABG BASE EXCESS -1.9 mmol/L (-2.0-2.0); ABG HCO3 27.4 mmol/L (22.0-26.0); ABG OXYGEN SATURATION 90.3 % (94-97); ABG PCO2 (T) 73.9 mmHg (32.0-45.0); ABG PO2 (T) 72.6 mmHg (75.0-100.0); ALLEN'S TEST POSITIVE; FCOHb 1.7 % (0.0-3.9); FLOW 5 L/min; FMetHb 0.1 % (0.0-1.5); FO2Hb 88.7 % (94-97); PATIENT TEMPERATURE 37.9; TOTAL HEMOGLOBIN 12.5 G/dl (12.0-16.0)
[2021-08-24] MEDS ORDERED: acetaminophen 650mg rectal suppository RC ONE (23:35)
[2021-08-24 23:41] LABS: ABG HCO3 27.4 mmol/L (22.0-26.0); ABG OXYGEN SATURATION 97.6 % (94-97); ABG PCO2 (T) 60.6 mmHg (32.0-45.0); ABG PO2 (T) 116.4 mmHg (75.0-100.0); ALLEN'S TEST POSITIVE; FCOHb 1.2 % (0.0-3.9); FMetHb 0.3 % (0.0-1.5); FO2Hb 96.1 % (94-97); PATIENT TEMPERATURE 38.2; RESPIRATORY RATE 20 b/min; TOTAL HEMOGLOBIN 11.9 G/dl (12.0-16.0)
[2021-08-25] MEDS ORDERED: magnesium hydroxide 30ml (MOM) UD suspension PO PRN (00:40)
[2021-08-25] MEDS ORDERED: acetaminophen 325mg tablet PO PRN ×2 (00:40)
[2021-08-25] MEDS ORDERED: mag hydrox/Alum hydrox/simeth 30ml oral suspension PO PRN (00:40)
[2021-08-25] MEDS ORDERED: morphine 2 MG/ML inj. syringe IV PRN (00:40)
[2021-08-25] MEDS ORDERED: metoclopramide 5 mg/ml inj IV PRN (00:40)
[2021-08-25] MEDS ORDERED: ondansetron/PF 4mg/2ml inj IV PRN (00:40)
[2021-08-25] MEDS ORDERED: HYDROcodone/acetaminophen 5mg/325mg tablet PO PRN (00:40)
[2021-08-25] MEDS: normal saline 1000ml 1,000 ML IV SCH ×2 (01:29→10:40)
--- NOTE | 2021-08-25 03:30 | NUR ---
Patient is much more alert and talkative than she has been since her arrival. AOx4.
--- NOTE | 2021-08-25 05:44 | NUR ---
Patient requesting a break from the bipap. Respiratory made aware, bipap placed on standby. Patient oxygen saturation maintaining adequately on room air. Dr Baugh now at the bedside to assess patient for admission.
--- NOTE | 2021-08-25 06:32 | NUR ---
report received from Ruth Ann PATRICK
--- NOTE | 2021-08-25 06:45 | NUR ---
FIRST INTRODUCTION TO PT PULSE OX PLACED ON FINGER, 50% ON RA WITH GOOD PLETH, PT PLACED ON 6L NC WITH INCREASE TO 65% PLACED ON SIMPLE MASK AT 10L WITH INCREASE TO 75% PT PLACED ON BIPAP WITH INCREASE TO 97% SPO2
[2021-08-25 08:38] LABS: ABG BASE EXCESS 0.2 mmol/L (-2.0-2.0); ABG HCO3 27.2 mmol/L (22.0-26.0); ABG OXYGEN SATURATION 97.2 % (94-97); ABG PCO2 (T) 54.6 mmHg (32.0-45.0); ABG PO2 (T) 91.6 mmHg (75.0-100.0); ALLEN'S TEST POSITIVE; FCOHb 1.2 % (0.0-3.9); FMetHb 0.3 % (0.0-1.5); FO2Hb 95.7 % (94-97); RESPIRATORY RATE 12 b/min; TIDAL VOLUME 990 mL; TOTAL HEMOGLOBIN 12.5 G/dl (12.0-16.0)
[2021-08-25] MEDS: docusate sod 100mg capsule PO SCH ×2 (09:43→20:30)
[2021-08-25] MEDS: enoxaparin 40mg/0.4ml syringe SUBCUT SCH (09:44)
[2021-08-25 13:20] LABS: ABG BASE EXCESS 1.2 mmol/L (-2.0-2.0); ABG HCO3 28.1 mmol/L (22.0-26.0); ABG OXYGEN SATURATION 93.8 % (94-97); ABG PCO2 (T) 57.5 mmHg (32.0-45.0); ABG PO2 (T) 72.3 mmHg (75.0-100.0); ALLEN'S TEST POSITIVE; FCOHb 0.8 % (0.0-3.9); FMetHb 0.3 % (0.0-1.5); FO2Hb 92.8 % (94-97); PATIENT TEMPERATURE 37.8; RESPIRATORY RATE 12 b/min; TIDAL VOLUME 822 mL; TOTAL HEMOGLOBIN 11.5 G/dl (12.0-16.0)
[2021-08-25] MEDS: methylPREDNISolone sod succ 125mg/2ml vial IV SCH ×2 (13:40→20:30)
[2021-08-25 15:00] VITALS: BP 115/62
[2021-08-25] MEDS: ipratropium/albuterol 3ml nebule NEB SCH ×3 (15:00→22:59)
[2021-08-25] MEDS: HYDROcodone/acetaminophen 10/325mg tab PO PRN (17:24)
[2021-08-25] MEDS: ceFAZolin/D5W- 1GM premix 50 ML IV SCH (17:24)
[2021-08-25 18:00] VITALS: BP 123/65
--- NOTE | 2021-08-25 18:42 | NUR ---
Problems reprioritized. Patient report given, questions answered & plan of care reviewed with lizz PATRICK, patient stable at transfer of care.
[2021-08-25 20:00] VITALS: BP 123/65
[2021-08-25] MEDS ORDERED: cefTRIAXone 1g/NS 100ml IVPB 100 ML IV SCH (20:00)
[2021-08-25 22:00] VITALS: BP 105/55
[2021-08-26] VITALS (8 sets, daily range): BP systolic 105–150; BP diastolic 55–94
[2021-08-26] MEDS: ceFAZolin/D5W- 1GM premix 50 ML IV SCH ×3 (01:30→16:00)
[2021-08-26] MEDS: morphine 2 MG/ML inj. syringe IV PRN ×4 (02:53→22:33)
[2021-08-26] MEDS: ipratropium/albuterol 3ml nebule NEB SCH ×6 (03:07→23:00)
[2021-08-26 06:45] LABS: BASOPHILS % (AUTO) 0.1 % (0-1); EOSINOPHILS % (AUTO) 0 % (0-6); HEMATOCRIT 32.7 % (35.0-45.0); HEMOGLOBIN 10.3 g/dl (12.0-16.0); LYMPHOCYTES # (AUTO) 0.6 X10'3 (1.1-4.8); LYMPHOCYTES % (AUTO) 3.6 % (21-51); MEAN CORPUSCULAR HEMOGLOBIN 25.5 PG (27.0-31.0); MEAN CORPUSCULAR HGB CONC 31.6 g/dL (33.0-36.5); MEAN CORPUSCULAR VOLUME 80.7 FL (78-98); MEAN PLATELET VOLUME 7.9 FL (7.4-10.4); MONOCYTES # (AUTO) 0.7 X10'3 (0-0.9); MONOCYTES % (AUTO) 4.3 % (2-12); PLATELET COUNT 207 X10'3 (140-440); RED BLOOD COUNT 4.06 X10'6 (4.20-5.60); RED CELL DISTRIBUTION WIDTH 15.6 % (11.5-14.5); WHITE BLOOD COUNT 16.3 X10'3 (4.5-11.0)
[2021-08-26 06:54] LABS: ALBUMIN 2.3 G/DL (3.4-5.0); ANION GAP 4 (8-16); BLOOD UREA NITROGEN 18 MG/DL (7-18); BUN/CREATININE RATIO 24.3 (6.6-38.0); CALCIUM 8.3 MG/DL (8.5-10.1); CHLORIDE 103 MMOL/L (99-107); CREATININE 0.74 MG/DL (0.40-0.90); GLUCOSE 165 MG/DL (70-104); POTASSIUM 4.1 MMOL/L (3.5-5.1); SODIUM 135 MMOL/L (135-145); TOTAL CARBON DIOXIDE 27.9 MMOL/L (24-32); eGFR 81 ML/MIN
--- NOTE | 2021-08-26 06:59 | NUR ---
Problems reprioritized. Patient report given,MARCO Lares, questions answered & plan of care reviewed with .
[2021-08-26] MEDS: docusate sod 100mg capsule PO SCH ×2 (08:11→20:08)
[2021-08-26] MEDS: enoxaparin 40mg/0.4ml syringe SUBCUT SCH (08:11)
[2021-08-26] MEDS: methylPREDNISolone sod succ 125mg/2ml vial IV SCH ×2 (09:02→20:08)
[2021-08-26] MEDS ORDERED: pneumococcal 23-VAL P-sac vacc 25 mcg/0.5ml vial IMVAC ONE (09:40)
--- NOTE | 2021-08-26 18:00 | NUR ---
ANGIE PHYSICAL ASSESSMENT documentation: I have reviewed and agree with all interventions, assessments performed and documented by William SEPULVEDA LVN.
--- NOTE | 2021-08-26 19:05 | NUR ---
RM 3013/A, Mera Leblanc is requesting for a muscle relaxant medication. Stated she takes chlorzoxazone at home. Please advice. Thanks [phone] Hare
[2021-08-27] MEDS: ceFAZolin/D5W- 1GM premix 50 ML IV SCH ×3 (00:51→16:10)
[2021-08-27 02:00] VITALS: BP 116/51
[2021-08-27] MEDS: ipratropium/albuterol 3ml nebule NEB SCH ×6 (03:10→23:00)
--- NOTE | 2021-08-27 03:23 | NUR ---
2130: PRN Morphine given for pain. Pt stated PO norco doesn't help with pain and would rather take IV morphine.
[2021-08-27 06:49] LABS: BASOPHILS % (AUTO) 0.1 % (0-1); EOSINOPHILS % (AUTO) 0 % (0-6); HEMATOCRIT 33.7 % (35.0-45.0); HEMOGLOBIN 10.7 g/dl (12.0-16.0); LYMPHOCYTES # (AUTO) 0.7 X10'3 (1.1-4.8); LYMPHOCYTES % (AUTO) 6.1 % (21-51); MEAN CORPUSCULAR HEMOGLOBIN 25.3 PG (27.0-31.0); MEAN CORPUSCULAR HGB CONC 31.8 g/dL (33.0-36.5); MEAN CORPUSCULAR VOLUME 79.6 FL (78-98); MONOCYTES # (AUTO) 0.4 X10'3 (0-0.9); MONOCYTES % (AUTO) 3.7 % (2-12); NEUTROPHILS # (AUTO) 10.6 X10'3 (1.8-7.7); NEUTROPHILS % (AUTO) 90.1 % (42-75); PLATELET COUNT 247 X10'3 (140-440); RED BLOOD COUNT 4.23 X10'6 (4.20-5.60); RED CELL DISTRIBUTION WIDTH 15.6 % (11.5-14.5); WHITE BLOOD COUNT 11.8 X10'3 (4.5-11.0)
--- NOTE | 2021-08-27 07:00 | NUR ---
Problems reprioritized. Patient report given, CELINA Lares questions answered & plan of care reviewed with .
[2021-08-27 07:05] LABS: ALBUMIN 2.4 G/DL (3.4-5.0); ANION GAP 1 (8-16); BLOOD UREA NITROGEN 12 MG/DL (7-18); BUN/CREATININE RATIO 17.6 (6.6-38.0); CALCIUM 8.5 MG/DL (8.5-10.1); CHLORIDE 103 MMOL/L (99-107); CREATININE 0.68 MG/DL (0.40-0.90); GLUCOSE 144 MG/DL (70-104); POTASSIUM 4.2 MMOL/L (3.5-5.1); SODIUM 134 MMOL/L (135-145); TOTAL CARBON DIOXIDE 30.2 MMOL/L (24-32); eGFR 89 ML/MIN
[2021-08-27] MEDS: docusate sod 100mg capsule PO SCH ×2 (07:47→20:00)
[2021-08-27] MEDS: enoxaparin 40mg/0.4ml syringe SUBCUT SCH (07:48)
[2021-08-27 08:00] VITALS: BP_SYST 164; BP_SYST 176; BP_SYST 181; BP_DIAS 100; BP_DIAS 81; BP_DIAS 83
[2021-08-27] MEDS: methylPREDNISolone sod succ 125mg/2ml vial IV SCH ×2 (09:25→21:13)
[2021-08-27] MEDS: morphine 2 MG/ML inj. syringe IV PRN ×4 (09:26→22:24)
--- NOTE | 2021-08-27 11:44 | NUR ---
Room 3013A had gram positive cocci pear short chain (Strep). Anaerobe bottle. [facility] ext [phone]
--- NOTE | 2021-08-27 11:45 | NUR ---
Pt had blood drawn in LT arm on 08/24/21 at 1914 anaerobe gram positive short chains. Doctor has been notified.
--- NOTE | 2021-08-27 11:51 | NUR ---
[id number] Can I remove her catheter and she how she does. Arnaud [id number]
[2021-08-27 18:00] VITALS: BP 136/64
--- NOTE | 2021-08-27 18:47 | NUR ---
[place] documentation: I have reviewed and agree with all interventions, assessments performed and documented by ANGIE Lares II.
--- NOTE | 2021-08-27 19:14 | NUR ---
Gave end of report to Esther Boothe. Answered all her questions.
[2021-08-27 20:00] VITALS: BP_SYST 147; BP_SYST 150; BP_DIAS 77; BP_DIAS 88
[2021-08-27 21:01] VITALS: BP 144/82
[2021-08-27 22:00] VITALS: BP 144/82
[2021-08-28] MEDS: morphine 2 MG/ML inj. syringe IV PRN ×5 (00:59→22:30)
[2021-08-28] MEDS: ceFAZolin/D5W- 1GM premix 50 ML IV SCH ×3 (01:14→18:53)
[2021-08-28 02:00] VITALS: BP 139/79
[2021-08-28] MEDS: ipratropium/albuterol 3ml nebule NEB SCH ×6 (03:09→23:00)
[2021-08-28 06:00] VITALS: BP 160/88
--- NOTE | 2021-08-28 07:02 | NUR ---
Received report from Esther Boothe
--- NOTE | 2021-08-28 07:02 | NUR ---
Problems reprioritized. Patient report given, CELINA Lares questions answered & plan of care reviewed with .
[2021-08-28 08:00] VITALS: BP_SYST 170; BP_SYST 172; BP_SYST 178; BP_DIAS 80; BP_DIAS 83; BP_DIAS 91
[2021-08-28 08:15] LABS: BASOPHILS % (AUTO) 0.1 % (0-1); EOSINOPHILS % (AUTO) 0 % (0-6); HEMATOCRIT 38.6 % (35.0-45.0); HEMOGLOBIN 12.3 g/dl (12.0-16.0); LYMPHOCYTES # (AUTO) 1.1 X10'3 (1.1-4.8); LYMPHOCYTES % (AUTO) 10.3 % (21-51); MEAN CORPUSCULAR HEMOGLOBIN 25.5 PG (27.0-31.0); MEAN CORPUSCULAR HGB CONC 31.8 g/dL (33.0-36.5); MEAN CORPUSCULAR VOLUME 80.1 FL (78-98); MEAN PLATELET VOLUME 7.8 FL (7.4-10.4); MONOCYTES # (AUTO) 0.7 X10'3 (0-0.9); NEUTROPHILS # (AUTO) 9.2 X10'3 (1.8-7.7); NEUTROPHILS % (AUTO) 83.6 % (42-75); PLATELET COUNT 278 X10'3 (140-440); RED BLOOD COUNT 4.82 X10'6 (4.20-5.60); RED CELL DISTRIBUTION WIDTH 15.7 % (11.5-14.5)
[2021-08-28] MEDS: docusate sod 100mg capsule PO SCH ×2 (08:15→19:21)
[2021-08-28] MEDS: enoxaparin 40mg/0.4ml syringe SUBCUT SCH (08:16)
[2021-08-28 08:34] LABS: ALBUMIN 2.4 G/DL (3.4-5.0); ANION GAP 6 (8-16); BLOOD UREA NITROGEN 11 MG/DL (7-18); CALCIUM 8.5 MG/DL (8.5-10.1); CHLORIDE 101 MMOL/L (99-107); CREATININE 0.61 MG/DL (0.40-0.90); GLUCOSE 125 MG/DL (70-104); SODIUM 140 MMOL/L (135-145); eGFR > 90 ML/MIN
[2021-08-28] MEDS: methylPREDNISolone sod succ 125mg/2ml vial IV SCH (08:34)
--- NOTE | 2021-08-28 09:00 | NUR ---
AGREE WITH AM ASSESSEMENT
[2021-08-28 09:48] LABS: TOTAL CELLS COUNTED 100
[2021-08-28 09:49] LABS: ELLIPTOCYTES FEW; HYPOCHROMASIA 1+; PLATELET ESTIMATE NORMAL; POLYCHROMASIA FEW; TEAR DROP CELLS FEW
[2021-08-28 11:00] VITALS: BP 141/75
--- NOTE | 2021-08-28 12:48 | NUR ---
Room 3013A has a positive [facility] Rt leg do you want a CT of leg. [facility] ext [phone]
[2021-08-28 19:02] VITALS: BP 140/73
[2021-08-28] MEDS: cyclobenzaprine 10mg tablet PO PRN (19:21)
--- NOTE | 2021-08-28 19:40 | NUR ---
GAVE END OF SHIFT REPORT TO HERON PATRICK. ANSWERED ALL HER QUESTIONS.
[2021-08-28 23:00] VITALS: BP 145/86
[2021-08-29] VITALS (7 sets, daily range): BP systolic 115–148; BP diastolic 62–83
[2021-08-29] MEDS: ceFAZolin/D5W- 1GM premix 50 ML IV SCH ×3 (00:30→16:27)
[2021-08-29] MEDS: ipratropium/albuterol 3ml nebule NEB SCH ×6 (03:00→23:10)
[2021-08-29] MEDS: morphine 2 MG/ML inj. syringe IV PRN ×4 (05:56→20:31)
--- NOTE | 2021-08-29 06:28 | NUR ---
Patient in room PCU 3013. I have received report from [facility] and had the opportunity to ask questions and assume patient care.
--- NOTE | 2021-08-29 06:36 | NUR ---
Problems reprioritized. Patient report given, ANGIE Martinez, questions answered & plan of care reviewed with .
[2021-08-29 06:48] LABS: BASOPHILS % (AUTO) 0.2 % (0-1); EOSINOPHILS % (AUTO) 0.2 % (0-6); LYMPHOCYTES # (AUTO) 2.6 X10'3 (1.1-4.8); LYMPHOCYTES % (AUTO) 24.4 % (21-51); MEAN CORPUSCULAR HEMOGLOBIN 25.9 PG (27.0-31.0); MEAN CORPUSCULAR HGB CONC 32.4 g/dL (33.0-36.5); MEAN PLATELET VOLUME 7.1 FL (7.4-10.4); MONOCYTES % (AUTO) 9.3 % (2-12); NEUTROPHILS % (AUTO) 65.9 % (42-75); PLATELET COUNT 272 X10'3 (140-440); RED BLOOD COUNT 4.63 X10'6 (4.20-5.60); RED CELL DISTRIBUTION WIDTH 15.4 % (11.5-14.5); WHITE BLOOD COUNT 10.6 X10'3 (4.5-11.0)
[2021-08-29 06:55] LABS: ALBUMIN 2.3 G/DL (3.4-5.0); ANION GAP 4 (8-16); BLOOD UREA NITROGEN 13 MG/DL (7-18); BUN/CREATININE RATIO 20.3 (6.6-38.0); CALCIUM 8.2 MG/DL (8.5-10.1); CHLORIDE 102 MMOL/L (99-107); CREATININE 0.64 MG/DL (0.40-0.90); GLUCOSE 73 MG/DL (70-104); POTASSIUM 3.9 MMOL/L (3.5-5.1); SODIUM 140 MMOL/L (135-145); TOTAL CARBON DIOXIDE 33.9 MMOL/L (24-32); eGFR > 90 ML/MIN
[2021-08-29] MEDS: enoxaparin 40mg/0.4ml syringe SUBCUT SCH (07:50)
[2021-08-29] MEDS: docusate sod 100mg capsule PO SCH ×2 (07:50→20:31)
[2021-08-29] MEDS: predniSONE 20 mg tablet PO SCH (07:51)
--- NOTE | 2021-08-29 08:34 | NUR ---
Initial: Pt admitted w/ acute respiratory failure, acute COPD exacerbation, and sepsis secondary to RLE cellulitis per EMR. Currently on Regular diet w/ avg intake ~50% of meals partially meeting needs. On 4L NC per documentation. Pt could benefit from Ensure High Protein TID to help meet increased protein needs. [facility] 08/25 receiving routine colace. Will continue to monitor. Recs: 1. Continue Regular diet as tolerated 2. Ensure High protein TID; pending MD verification 3. Bowel care per rx 4. Scaled wts Addendum: 08/29/21 at [address] Amended: Links added.
[2021-08-29 08:54] LABS: PLATELET ESTIMATE NORMAL; TOTAL CELLS COUNTED 100
[2021-08-29 08:55] LABS: ANISOCYTOSIS 1+; ELLIPTOCYTES FEW
[2021-08-29] MEDS: cyclobenzaprine 10mg tablet PO PRN (16:29)
--- NOTE | 2021-08-29 18:21 | NUR ---
Problems reprioritized. Patient report given, questions answered & plan of care reviewed with CELINA Santana.
--- NOTE | 2021-08-29 19:48 | NUR ---
Agree with ANGIE Saba physical assessments. José PATRICK
[2021-08-30] MEDS: ceFAZolin/D5W- 1GM premix 50 ML IV SCH ×2 (00:11→08:30)
[2021-08-30 00:15] VITALS: BP 113/57
--- NOTE | 2021-08-30 01:22 | NUR ---
Pt is educated to use the call light button to call for help.
[2021-08-30] MEDS: HYDROcodone/acetaminophen 10/325mg tab PO PRN (02:28)
[2021-08-30] MEDS: cyclobenzaprine 10mg tablet PO PRN (02:28)
[2021-08-30] MEDS: ipratropium/albuterol 3ml nebule NEB SCH ×3 (03:02→11:14)
[2021-08-30 03:27] VITALS: BP 106/56
[2021-08-30 06:00] VITALS: BP 116/61
[2021-08-30 06:06] LABS: BASOPHILS % (AUTO) 0.3 % (0-1); EOSINOPHILS # (AUTO) 0.1 X10'3 (0-0.9); HEMOGLOBIN 11.4 g/dl (12.0-16.0); LYMPHOCYTES # (AUTO) 3.2 X10'3 (1.1-4.8); MEAN CORPUSCULAR HEMOGLOBIN 24.9 PG (27.0-31.0); MEAN CORPUSCULAR HGB CONC 31.7 g/dL (33.0-36.5); MEAN CORPUSCULAR VOLUME 78.6 FL (78-98); MEAN PLATELET VOLUME 7.2 FL (7.4-10.4); MONOCYTES # (AUTO) 1.1 X10'3 (0-0.9); MONOCYTES % (AUTO) 8.2 % (2-12); NEUTROPHILS # (AUTO) 8.4 X10'3 (1.8-7.7); NEUTROPHILS % (AUTO) 65.5 % (42-75); PLATELET COUNT 293 X10'3 (140-440); RED BLOOD COUNT 4.58 X10'6 (4.20-5.60); RED CELL DISTRIBUTION WIDTH 15.9 % (11.5-14.5); WHITE BLOOD COUNT 12.9 X10'3 (4.5-11.0)
[2021-08-30 06:10] LABS: ALBUMIN 2.4 G/DL (3.4-5.0); ANION GAP -1 (8-16); BLOOD UREA NITROGEN 10 MG/DL (7-18); BUN/CREATININE RATIO 15.2 (6.6-38.0); CALCIUM 8.1 MG/DL (8.5-10.1); CHLORIDE 102 MMOL/L (99-107); CREATININE 0.66 MG/DL (0.40-0.90); GLUCOSE 81 MG/DL (70-104); SODIUM 137 MMOL/L (135-145); TOTAL CARBON DIOXIDE 35.9 MMOL/L (24-32); eGFR > 90 ML/MIN
[2021-08-30 06:50] LABS: MICROCYTOSIS 1+; PLATELET ESTIMATE NORMAL; TOTAL CELLS COUNTED 100
[2021-08-30 06:51] LABS: ANISOCYTOSIS 1+; ELLIPTOCYTES FEW
--- NOTE | 2021-08-30 06:55 | NUR ---
Problems reprioritized. Patient report given,ANGIE Martinez, questions answered & plan of care reviewed with .
[2021-08-30] MEDS: predniSONE 20 mg tablet PO SCH (07:54)
[2021-08-30] MEDS: enoxaparin 40mg/0.4ml syringe SUBCUT SCH (07:55)
[2021-08-30] MEDS: docusate sod 100mg capsule PO SCH (07:55)
[2021-08-30 08:00] VITALS: BP 116/61
--- NOTE | 2021-08-30 08:27 | NUR ---
Patient in room PCU 3013. I have received report from CELINA Santana and had the opportunity to ask questions and assume patient care.
--- NOTE | 2021-08-30 09:44 | NUR ---
O2 Sat at rest on room air:_82__% If below 89%: Recovery O2 Sat at rest on 3___LPM:__91_%:___% via_Nasal cannula (mask/nasal cannula, etc..) No further documentation is necessary. If O2 Sat did not drop below 89% on room air,ambulate patient on room air. O2 Sat while ambulating on room air:___% Recovery O2 Sat while ambulating on ___LPM:___% No further documentation is necessary. If patient does not drop below 89% while ambulating, he/she does not qualify for home O2.
[2021-08-30] MEDS ORDERED: HYDR-3965 PO (09:55)
[2021-08-30] MEDS ORDERED: CEPH-585 PO (09:55)
[2021-08-30] MEDS ORDERED: PRED20TA PO (09:57)
[2021-08-30 11:00] VITALS: BP 100/67
[2021-08-30 11:02] VITALS: BP_SYST 100; BP_SYST 118; BP_DIAS 67; BP_DIAS 68
--- NOTE | 2021-08-30 14:05 | NUR ---
Patient is stable for discharge per Dr. Spain orders. All discharge instructions reviewed with patient and all questions answered. new prescriptions sent electronically. Patient medications retrieved from pharmacy. PIV discontinued. engine monitor discontinued. Belongings collected and sent with patient. Mode of transportation via private vehicle with . Wheeled to lobby.
== END 2021-08-30 14:00 | disposition home health service (06) | DRG 871 ==
LOC: ER 17:56 → ED HOLD 08-25 00:41 → PCU 3S 08-25 15:43
PROVIDERS: ADMIT Internal Medicine; ATTEND Family Medicine
PROC: 5A0935A Assistance with Respiratory Ventilation, Less than 24 Consecutive Hours, High Flow/Velocity Cannula (ICD-10-PCS; principal; 2021-08-25)
DX: A41.9 Sepsis, unspecified organism (principal); J96.02 Acute respiratory failure with hypercapnia; G93.41 Metabolic encephalopathy; J96.01 Acute respiratory failure with hypoxia; L03.115 Cellulitis of right lower limb; J44.1 Chronic obstructive pulmonary disease with (acute) exacerbation; N10 Acute pyelonephritis; B96.20 Unspecified Escherichia coli [E. coli] as the cause of diseases classified elsewhere; J44.9 Chronic obstructive pulmonary disease, unspecified; Z20.822 Contact with and (suspected) exposure to COVID-19; G89.4 Chronic pain syndrome; Z72.0 Tobacco use; Z90.49 Acquired absence of other specified parts of digestive tract; Z98.84 Bariatric surgery status
CPT/HCPCS: 36415; 36600; 70450; 71045; 74176; 80048; 80053; 80305; 80320; 81001; 82803; 82948; 83605; 83735; 83880; 84145; 84484; 85007; 85018; 85025; 87040; 87077; 87081; 87088; 87186; 87502; 87503; 87635; 90732; 93005; 94640; 94660; 94760; 96361; 96365; 96375; 97116; 97161; 99291; 99292; C9803; G0378; J0690; J0696; J1650; J2270; J2405; J2930; J7030; J7512

== ENCOUNTER 2021-10-06 15:45 | Emergency (ER) | payer BC, MEDICAID ==
[~2021-10-06] VITALS: Ht 167.6 cm; Wt 91.0 kg
[~2021-10-06 15:45] MED LIST changes: +BUPR1FIL20 SL; +BUSP10TA4 PO; +CEPH-585 PO; +CHLO500T3 PO; -DULO60CA65; +HYDR-3686 PO; +METO-395 PO; -MORP20CA20 PO; -MORP30TA PO; +TIOT4MIS2 PO; -TIZA4CAP PO
[2021-10-06 16:22] VITALS: BP 132/72
[2021-10-06 17:36] LABS: BASOPHILS % (AUTO) 0.8 % (0-1); EOSINOPHILS # (AUTO) 0.1 X10'3 (0-0.9); EOSINOPHILS % (AUTO) 2.6 % (0-6); HEMATOCRIT 36.1 % (35.0-45.0); HEMOGLOBIN 11.8 g/dl (12.0-16.0); LYMPHOCYTES # (AUTO) 1.9 X10'3 (1.1-4.8); LYMPHOCYTES % (AUTO) 33.6 % (21-51); MEAN CORPUSCULAR HEMOGLOBIN 25.5 PG (27.0-31.0); MEAN CORPUSCULAR HGB CONC 32.7 g/dL (33.0-36.5); MEAN CORPUSCULAR VOLUME 78.2 FL (78-98); MEAN PLATELET VOLUME 7.1 FL (7.4-10.4); MONOCYTES # (AUTO) 0.6 X10'3 (0-0.9); MONOCYTES % (AUTO) 9.9 % (2-12); NEUTROPHILS % (AUTO) 53.1 % (42-75); PLATELET COUNT 327 X10'3 (140-440); RED BLOOD COUNT 4.62 X10'6 (4.20-5.60); RED CELL DISTRIBUTION WIDTH 15.4 % (11.5-14.5); WHITE BLOOD COUNT 5.6 X10'3 (4.5-11.0)
[2021-10-06 17:58] LABS: ALANINE AMINOTRANSFERASE 34 U/L (12-78); ALBUMIN 3.3 G/DL (3.4-5.0); ALBUMIN/GLOBULIN RATIO 0.8 (1.1-1.5); ALKALINE PHOSPHATASE 95 IU/L (46-116); ANION GAP 9 (8-16); ASPARTATE AMINO TRANSFERASE 32 U/L (10-37); BILIRUBIN,TOTAL 0.3 MG/DL (0.1-1.0); BLOOD UREA NITROGEN 6 MG/DL (7-18); BUN/CREATININE RATIO 7.9 (6.6-38.0); CALCIUM 8.9 MG/DL (8.5-10.1); CHLORIDE 100 MMOL/L (99-107); CREATININE 0.76 MG/DL (0.40-0.90); GLUCOSE 100 MG/DL (70-104); POTASSIUM 4.2 MMOL/L (3.5-5.1); SODIUM 140 MMOL/L (135-145); TOTAL PROTEIN 7.3 G/DL (6.4-8.2); eGFR 78 ML/MIN
[2021-10-06] MEDS ORDERED: HYDROcodone/acetaminophen 10/325mg tab PO ONE (18:30)
[2021-10-06] MEDS ORDERED: furosemide 20MG tablet PO ONE (18:50)
[2021-10-06] MEDS ORDERED: FURO-150 PO (19:18)
[2021-10-06] MEDS ORDERED: HYDR-3965 PO (19:18)
== END 2021-10-06 19:34 | disposition home or self-care (01) ==
LOC: ER 15:46
DX: I87.2 Venous insufficiency (chronic) (peripheral) (principal); G89.29 Other chronic pain; M54.9 Dorsalgia, unspecified; D64.9 Anemia, unspecified; Z87.81 Personal history of (healed) traumatic fracture
CPT/HCPCS: 36415; 80053; 83605; 83880; 85025; 93005; 93971; 99285